=== PATIENT | male | born 1990 | race Caucasian/White ===

== ENCOUNTER → 2024-07-11 11:02 | Outpatient (BNVA) | payer MEDICAID, SELFPAY | PROVIDERS: Visit Provider Nurse Practitioner Family | DX: F41.9 Anxiety disorder, unspecified (principal); L50.9 Urticaria, unspecified | CPT/HCPCS: 80053; 84443; 85025 ==

== ENCOUNTER → 2024-08-15 12:11 | Outpatient (BNVA) | payer MEDICAID, SELFPAY | PROVIDERS: Family Provider Nurse Practitioner Family; PCP Nurse Practitioner Family; Visit Provider Nurse Practitioner Family | DX: E87.5 Hyperkalemia (principal); F41.9 Anxiety disorder, unspecified; L50.9 Urticaria, unspecified; R63.4 Abnormal weight loss | CPT/HCPCS: 80053 ==